=== PATIENT | female | born 1965 | race Caucasian/White ===

== ENCOUNTER 2022-03-18 09:10 | Outpatient (CLI) | payer MEDICAID, SELFPAY ==
[2022-03-18 10:08] LABS: Absolute Lymphocyte Count 1.93 X10^3/uL (0.83-4.51); Basophil# 0.05 X10^3/uL; Basophil% 0.7 % (0-1); Eosinophil# 0.18 X10^3/uL; Eosinophils% 2.6 % (0-5); Hematocrit 44.2 % (37-47); Hemoglobin 14.3 g/dL (12.0-15.0); Lymphocyte # 1.93 X10^3/ul (0.83-4.51); Lymphocyte % 28.1 % (19-41); Mean Corp Hgb Conc 32.4 g/dL (32-36); Mean Corpuscular Hgb 31.5 pg (27.0-32.0); Mean Corpuscular Volume 97.4 fL (81-99); Mean Platelet Vol. 11.8 fl (6.2-12.0); Monocyte# 0.65 X10^3/uL; Monocyte% 9.5 % (0-10); NRBC Flagged by Analyzer 0 % (0-5); Neutrophil # 4.02 X10^3/uL (2.7-7.7); Neutrophil % 58.7 % (47-70); Platelet Count 217 K/mm3 (150-450); RBC Distribution Width CV 12.7 % (11.6-14.6); RBC Distribution Width SD 45.7 fl (35.1-43.9); Red Blood Count 4.54 M/mm3 (4.2-5.4); White Blood Count 6.9 K/mm3 (4.4-11.0)
[2022-03-18 10:10] LABS: Erythrocyte Sedimentation Rate 7 mm/hr (0-30)
[2022-03-18 10:24] LABS: ALB/GLOB Ratio 1.3 RATIO (0.9-2.4); AST(SGOT) 11 U/L (15-37); Alanine Aminotransfer ALT/SGPT 13 U/L (13-56); Albumin, Serum 3.9 g/dL (3.2-5.0); Alkaline Phosphatase 83 U/L (45-117); Amylase 62 U/L (25-115); Anion Gap 6 (5-15); BUN 19 mg/dL (7-18); BUN/Creat Ratio 25.4 RATIO (10-20); CRP < 2.90 mg/L (0.0-3.0); Calcium,Total 9.4 mg/dL (8.5-10.1); Chloride 109 mmol/L (98-107); Creatinine, Serum 0.75 mg/dL (0.55-1.02); EST Glomerular Filtration Rate 84 mL/min (>60); Est Glom Filt Rate - Afr Amer 102 mL/min (>60); Glucose 96 mg/dL (74-106); LDH 183 U/L (84-246); Lipase 131 U/L (73-393); Potassium 3.8 mmol/L (3.5-5.1); Protein, Total 6.9 g/dL (6.4-8.2); Sodium Level 142 mmol/L (136-145)
[2022-03-19 17:07] LABS: Endomysial Antibody IgA Negative (Negative); Immunoglobulin A 73 mg/dL (87-352)
[2022-03-20 12:04] LABS: t-Transglutaminase IgA <2 U/mL (0-3)
[2022-03-22 14:09] LABS: Immunoglobulin A 68 mg/dL (87-352); Immunoglobulin G 622 mg/dL (586-1602); Immunoglobulin M 182 mg/dL (26-217)
[2022-03-22 14:22] LABS: Immunoglobulin E 13 IU/mL (6-495)
== END 2022-03-18 23:59 | disposition home or self-care (01) ==
LOC: LAB 09:12
PROVIDERS: PCP Family Medicine; Referring Provider Nurse Practitioner Adult Health; Visit Provider Nurse Practitioner Adult Health
DX: R10.13 Epigastric pain (principal)
CPT/HCPCS: 36415; 80053; 82150; 82784; 82785; 83516; 83615; 83690; 85025; 85652; 86140; 86255

== ENCOUNTER 2022-03-28 07:39 | Day surgery (SDC) | payer MEDICAID, SELFPAY ==
--- NOTE | 2022-03-28 07:43 | HP.PCM_ITS ---
History and Physical Date of Admission: 03/28/22 Intake Visit Reasons:?ABD PAIN GATRITIS Chief Complaint: Abdominal pain Allergies No Known Allergies Allergy (Verified 03/18/22 08:19) Medications cholecalciferol (vitamin D3) 50 mcg (2,000 unit) capsule 50 mcg PO DAILY 03/18/22 [History Confirmed 03/18/22] PFSH Medical History?(Updated 03/18/22 @ 09:50 by Cadence Bowen NP, SENIOR ANALYST-C) Anxiety Chronic superficial gastritis without bleeding Diaphragmatic hernia without obstruction or gangrene Epigastric pain Ganglion cyst Gastritis Leg cramps Nausea and vomiting Pain in thoracic spine Pruritus, unspecified Rib pain Right foot pain Syncope and collapse Surgical History? H/O umbilical hernia repair History of tonsillectomy Hx of cholecystectomy Status post right breast lumpectomy Tubal ligation status Family History? Mother Breast cancer Colon cancer HypertensionSister DiabetesBrother Diabetes Social History? Smoking Status:? Current every day smoker tobacco type: cigarettes alcohol intake:? current alcohol intake frequency: holidays/special occasions only HPI HPI Chief Complaint: Abdominal pain Details: SAFIA LEMUS, is a 57 F who presents to the office today to establish with GI for epigastric pain that began in November 2021.? She had 2 emergency room visits around that time at [facility].? Apparently the first 1 was for shakes tremors and insomnia.? The second visit was on 11/09/2021 for abdominal pain and nausea.? She was treated with IV fluids because she had elevated hemoglobin and hematocrit.? Remainder of CBC with differential was normal.? CMP was normal.? Sed rate was negative.? CT abdomen and pelvis with IV contrast was negative.? She was discharged with Protonix ketorolac and Percocet.? No relief of pain with PPI therapy or with [id number] antiacids.? Some improvement in her nausea with sucralfate from her primary care provider. Constant dull epigastric pain, the severity varies, feels like increased pressure when it flares, no pattern she can discern, doesn't wake her up, not related to eating, doesn't radiate. No relief with antacids. Sucralfate helped with nausea but not the pain. Has nausea every day, random bouts of nausea, no vomiting. No heartburn or acid relux. No difficulty swallowing, but it can feel like everything is backing up. No change in appetite. No early satiety. Has a BM every morning after coffee. No diarrhea or constipation, no melena or hematochezia. She had COVID twice, about a year ago and shortly before these symptoms began She had EGD and colonoscopy about 9 yrs ago by general surgeon Dr Huang in [place] Mother colon cancer in her 60s Her only medication is vitamin D supplement.? Past surgical history includes umbilical hernia repair, cholecystectomy, tubal ligation. ROS Const Constitutional: Positive for fatigue ENT ENT: No difficulty swallowing Gastro GI: Positive for abdominal pain, bloating, excessive flatus and nausea/dyspepsia; No belching, change in bowel habits, change in stool character, coffee ground emesis, constipation, cramping, diarrhea, heartburn, difficulty swallowing, feeling full early, incontinent of stools, Vomiting blood/hematemesis, Blood in stool, loose stools, Black,tarry stools, pain with swallowing, vomiting or other Musc Musculoskeletal: Positive for joint pain, back pain and sciatica Skin Skin: No yellowing of the eye or itchy eyes Psych Psychiatric: No anxiety and No depression Endo Endocrine: Positive for fatigue Aller/Imm Allergy/Immunologic: No itchy eyes James/Lymp Hematologic/Lymphatic: Positive for easy bruising; No easy bleeding Exam Const General: cooperative, healthy appearing and comfortable Nutritional Appearance: thin Orientation: alert, awake and oriented x3 HENMT Head: normal to inspection Eyes Sclera: sclerae normal Chest Chest palpation & inspection: normal inspection of the chest Resp Effort & Inspection: normal respiratory effort GI Inspection: normal to inspection Palpation: soft, no hepatosplenomegaly, no masses and tender in the epigastrum and in the RUQ General: bladder normal to palpation Bimanual Exam- Vagina & Uterus: bladder normal to palpation Skin General: no rashes or lesions noted Neuro Gait: normal gait Psych Mood: euthymic mood Quality Reporting Tobacco Screening ([facility]) Smoking Status: Current every day smoker Assessment and Plan Assessment and Plan (1) Epigastric pain: ?Status:?Acute ?Plan: 57 yr old female with chronic epigastric pain and nausea. DDx includes PUD, gastroparesis, pancreatitis. Will get biochemical w/u. Will get gastric emptying study and RUQ US. We will call her w/ lab and imaging results, and any further eval or treatment based on those results. She will be scheduled for EGD to eval for gastritis, PUD, h pylori; f/u in office 2 wks later. (2) Nausea: ?Status:?Acute ?Plan: see above ? ? ? Orders: Orders Gastric Emptying Study Today R10.13 - Epigastric pain ? Amylase Today R10.13 - Epigastric pain ? Comprehensive Metabolic Profil Today R10.13 - Epigastric pain ? CRP Today R10.13 - Epigastric pain ? LDH Today R10.13 - Epigastric pain ? Lipase Today R10.13 - Epigastric pain ? CBC W/Diff, Automated Today R10.13 - Epigastric pain ? Erythrocyte Sed Rate Today R10.13 - Epigastric pain ? Celiac Disease Profile Today R10.13 - Epigastric pain ? Immunoglobulins G/A/M/E Today R10.13 - Epigastric pain ? Abdomen Complete Today R10.13 - Epigastric pain ? EGD 03/28/22 R10.13 - Epigastric pain ? Medications: Discontinued oxycodone-acetaminophen 5-325 mg ?? Discontinued Reason:? Pt no longer taking 1 TAB? PO Q6H PRN PRN 15 TABLETS 0RF Mod-Severe (Pain Scale 6-10) ? ? I have examined the patient and the H&P has been reviewed. There are no clinical changes since date of exam.
[2022-03-28] MEDS: Lactated Ringers 1,000 ML 15 ML IV (07:50)
[2022-03-28 07:57] VITALS: BP 121/79; PULSE 82; RESP 18; TEMP 36.9; O2SAT 97; BMI 22.7
[2022-03-28 08:30] VITALS: BP 121/79; BP 85/55; PULSE 80; RESP 17; TEMP 36.7; O2SAT 94
[2022-03-28 08:35] VITALS: BP 120/90; BP 121/79; PULSE 90; RESP 17; O2SAT 99
--- NOTE | 2022-03-28 08:35 | OP.CCLET_ITS ---
03/28/2022 [facility] Re : Upper GI endoscopy procedure for Trish Davis This procedure was performed on Monday, March 28, 2022. My impressions and recommendations are as follows: Impressions : - LA Grade A reflux esophagitis. Biopsied. - Medium-sized hiatal hernia. - Erythematous mucosa in the antrum. Biopsied. - A single lesion diagnostic of aberrant pancreas was found in the duodenum. Biopsied. Recommendations : - Discharge patient to home. - Resume previous diet. - Continue present medications. - Await pathology results. My findings are described in the full procedure note, which is enclosed. If I can be of further assistance, please feel free to contact me at . Sincerely, Ronny Mann, 03/28/2022 8:35:06 AM This report has been signed electronically.
--- NOTE | 2022-03-28 08:35 | OP.EGD_ITS ---
Patient Name: Trish Cifuentes Procedure Date: 03/28/2022 8:13 AM Date of : 1965 Age: 57 Procedure: Upper GI endoscopy Indications: Epigastric abdominal pain, Failure to respond to medical treatment Providers: Ronny Mann DO Medicines: Monitored Anesthesia Care Patient Profile: This is a 57 year old female. Refer to note in patient chart for documentation of history and physical. Patient has symptoms of chronic abdominal cramping and acute epigastric abdominal pain. Complications: No immediate complications. Procedure: Pre-Anesthesia Assessment: - Prior to the procedure, a History and Physical was performed, and patient medications and allergies were reviewed. The risks and benefits of the procedure and the sedation options and risks were discussed with the patient. All questions were answered and informed consent was obtained. Patient identification and proposed procedure were verified in the pre-procedure area. Mental Status Examination: alert and oriented. Airway Examination: normal oropharyngeal airway and neck mobility. Respiratory Examination: clear to auscultation. CV Examination: normal. Prophylactic Antibiotics: The patient does not require prophylactic antibiotics. Prior Anticoagulants: The patient has taken no previous anticoagulant or antiplatelet agents. ASA Grade Assessment: II - A patient with mild systemic disease. After reviewing the risks and benefits, the patient was deemed in satisfactory condition to undergo the procedure. The anesthesia plan was to use monitored anesthesia care (MAC). Immediately prior to administration of medications, the patient was re-assessed for adequacy to receive sedatives. The heart rate, respiratory rate, oxygen saturations, blood pressure, adequacy of pulmonary ventilation, and response to care were monitored throughout the procedure. The physical status of the patient was re-assessed after the procedure. After obtaining informed consent, the endoscope was passed under direct vision. Throughout the procedure, the patient's blood pressure, pulse, and oxygen saturations were monitored continuously. The gastroscope was introduced through the mouth, and advanced to the second part of duodenum. The upper GI endoscopy was accomplished without difficulty. The patient tolerated the procedure well. Scope In: 8:20:17 AM Scope Out: 8:26:08 AM Total Procedure Duration Time 0 hours 5 minutes 51 seconds Findings: LA Grade A (one or more mucosal breaks less than 5 mm, not extending between tops of 2 mucosal folds) esophagitis with no bleeding was found 35 to 37 cm from the incisors. Biopsies were taken with a cold forceps for histology. Verification of patient identification for the specimen was done. Estimated blood loss was minimal. A medium-sized hiatal hernia was present. Patchy mildly erythematous mucosa without bleeding was found in the gastric antrum. Biopsies were taken with a cold forceps for histology. Verification of patient identification for the specimen was done. Estimated blood loss was minimal. A single smooth lesion measuring 5 mm in diameter was found in the duodenal bulb. Biopsies were taken with a cold forceps for histology. Verification of patient identification for the specimen was done. Estimated blood loss was minimal. Impression: - LA Grade A reflux esophagitis. Biopsied. - Medium-sized hiatal hernia. - Erythematous mucosa in the antrum. Biopsied. - A single lesion diagnostic of aberrant pancreas was found in the duodenum. Biopsied. Recommendation: - Discharge patient to home. - Resume previous diet. - Continue present medications. - Await pathology results. Procedure Code(s): --- Professional --- 40106, Esophagogastroduodenoscopy, flexible, transoral; with biopsy, single or multiple CPT copyright 2017 [employer]. All rights reserved. The codes documented in this report are preliminary and upon appraisal technician review may be revised to meet current compliance requirements. Ronny Mann DO 03/28/2022 8:35:06 AM This report has been signed electronically. Number of Addenda: 0 Note Initiated On: 03/28/2022 8:13 AM
[2022-03-28 08:40] VITALS: BP 121/73; BP 121/79; PULSE 87; RESP 17; O2SAT 99
[2022-03-28 08:45] VITALS: BP 121/79; BP 124/82; PULSE 79; RESP 18; TEMP 36.7; O2SAT 98
--- NOTE | 2022-03-28 08:45 | EGD_PTH ---
PATIENT: SAFIA LEMUS LOC: EN U#:[id number] AGE/SX: 57/F ROOM: RE03/28/[address]: Dr. Ronny Mann DO : 1965 BED: DIS: 03/28/2022 SPEC #: [id number] RECD: 03/28/22 09:57 STATUS: DIONE DAVIDA #: [id number] YONI: 03/28/22 08:[address]: Ronny Mann DEPT: SURGICAL PATHOLOGY RECD BY: Nika Mike ENTERED: 03/28/22 11:27 SP TYPE: EGD BIOPSY OT DR: Beatriz Davis PA-C Tissues: A - Duodenum, NOS B - Gastric mucous membrane C - Esophagus, NOS Procedures: Special Stain Group II Surgery Specimen Level IV Alcian Blue/PAS (control) HEADER OPERATION: EGD ([facility]) with biopsies PRE-OP DIAGNOSIS: Epigastric pain, nausea TISSUE SUBMITTED: A ? Duodenal ulcer biopsy, B ? Gastric antrum biopsy, C ? Distal esophagus biopsy MICROSCOPIC DIAGNOSIS A. Duodenal ulcer, biopsy: Gastric metaplasia and mild chronic inflammation. B. Gastric antrum, biopsy: Minimal chronic inflammation. See comment. C. Distal esophagus, biopsy: Gastroesophageal junctional mucosa with chronic inflammation. Changes of reflux. No evidence of goblet cell metaplasia. See comment. AM:scooter 03/29/2022 COMMENT B. The results of immunohistochemistry for Helicobacter pylori will be reported separately ([id number]). C. Alcian blue/PAS stain with matched control supports the above diagnosis. MICROSCOPIC DESCRIPTION Slides are reviewed. GROSS DESCRIPTION A - Received in fixative is one container labeled with the patient's name and designated duodenal ulcer biopsy. The specimen consists of multiple irregular fragments of light garzon soft tissue that in aggregate measure 1 x 0.3 x 0.1 cm. The specimen is totally submitted in one cassette. B - Received in fixative is one container labeled with the patient's name and designated gastric antrum biopsy. The specimen consists of two irregular fragments of light garzon soft tissue that in aggregate measure 0.6 x 0.3 x 0.1 cm. The specimen is totally submitted in one cassette. C - Received in fixative is one container labeled with the patient's name and designated distal esophagus biopsy. The specimen consists of multiple irregular fragments of light garzon soft tissue that in aggregate measure 0.8 x 0.3 x 0.1 cm. The specimen is totally submitted in one cassette. / SJ:rg 03/28/2022 TC:3 CPT: 71262 x3, 62127
--- NOTE | 2022-03-28 08:45 | IMM_PTH ---
PATIENT: SAFIA LEMUS LOC: EN U#:[id number] AGE/SX: 57/F ROOM: RE03/28/[address]: Dr. Ronny Mann DO : 1965 BED: DIS: 03/28/2022 SPEC #: [id number] RECD: 03/28/22 14:23 STATUS: DIONE REIsaac #: [id number] YONI: 03/28/22 08:[address]: Ronny Mann DEPT: IMMUNOHISTOCHEMISTRY RECD BY: Jennifer Yancey ENTERED: 03/28/22 14:24 SP TYPE: IMMUNO OTHR DR: Beatriz Davis PA-C Tissues: B - Stomach, NOS Procedures: H Pylori (initial) PHYSICIAN & INSTITUTION [place] [id number] SPECIMEN INFORMATION: Tissue Source: B ? Gastric antrum Clinical Info: Epigastric pain, nausea Specimen Number: [id number] CPT code: 16167 METHODOLOGY: Deparaffinized sections of prefer/formalin-fixed tissue or PAP/DQ stained slides are incubated with monoclonal/polyclonal antibodies/oligonucleotide probes. Localization is made via biotin free immunoperoxidase method. Appropriate controls are performed and reacted as expected. Results on target cell population are indicated in the following table: RESULTS: ANTIBODY / CLONE RESULT Block B H Pylori (polyclonal) negative These tests were developed and their performance characteristics determined by [facility]. They may not have been cleared or approved by the U.S. Food and Drug Administration. The FDA has determined that such clearance or approval is not necessary. The above immunohistochemical/dualISH markers are ordered and reviewed by the Pathologist. INTERPRETATION: B. Gastric antrum, biopsy: Negative for Helicobacter pylori organisms. AM:scooter 03/29/2022
[2022-03-28 09:05] VITALS: BP 121/79
== END 2022-03-28 09:32 | disposition home or self-care (01) ==
LOC: EN 07:39 → AC 07:40
PROVIDERS: PCP Family Medicine; Referring Provider Family Medicine; Visit Provider Internal Medicine Gastroenterology
PROC: 0DJ08ZZ Inspection of Upper Intestinal Tract, Via Natural or Artificial Opening Endoscopic (ICD-10-PCS; CPT 43235; principal; 2022-03-28 08:40)
DX: K44.9 Diaphragmatic hernia without obstruction or gangrene (principal); K21.00 Gastro-esophageal reflux disease with esophagitis, without bleeding; G47.00 Insomnia, unspecified; R11.0 Nausea; Z80.0 Family history of malignant neoplasm of digestive organs; F17.200 Nicotine dependence, unspecified, uncomplicated; R10.13 Epigastric pain
CPT/HCPCS: 43239; 88305; 88313; 88342; J7120; J2405

== ENCOUNTER 2022-08-05 11:50 | Day surgery (SDC) | payer OTHER, MEDICAID, SELFPAY ==
[2022-08-05] VITALS (7 sets, daily range): BP systolic 127–150; BP diastolic 77–92; PULSE 82–88; RESP 16; TEMP 36.2–36.8; O2SAT 97–100; BMI 21.7
[2022-08-05] MEDS: Lactated Ringers 1,000 ML 15 ML IV (12:47)
--- NOTE | 2022-08-05 12:50 | HP.PCM_ITS ---
History and Physical Date of Admission: 08/05/22 57 F who presents to the office today for f/u epigastric pain. EGD found pancreatic rest in the duodenum. Plan at last visit was to hold on further testing for now per pt preference (we had discussed abd US), and to have her take metoclopramide 5 mg at HS and pancreatic enzymes, Creon 1 cap with snack, 2 caps with meals. Metoclopramide didn't help, but she does find Creon helpful; says I now have more good days than bad days. She now says her epigastric pain began 9 yrs ago. Became more problematic 11/2021. 03/2022 EGD findings--hiatal hernia, pancreatic rest in duodenum (bx is gastric metaplasia which is consistent with pancreatic rest), gastritis At her last appt on 04/05/22 the pain had flared since the EGD. Pain was almost constant, dull pressure type of pain, and tender to palpation. The severity varies, no pattern she can discern, doesn't wake her up, not related to eating, doesn't radiate. Pain is more bothersome than the nausea. No vomiting. No heartburn or acid reflux. No bowel complaints. No change in appetite. No early satiety. Has a BM every morning after coffee. No diarrhea or constipation, no melena or hematochezia. 03/2022 labs: cbc unremarkable, cmp unremarkable, normal esr, normal crp, normal amylase, normal lipase, low IgA so tissue transglutaminase IgG needs to be done CT abdomen and pelvis with IV contrast was negative at [facility] during ED visit in 11/2021.? She had COVID twice, about a year ago and shortly before these symptoms began Mother colon cancer in her 60s ROS Const Constitutional: No fatigue ENT ENT: No difficulty swallowing Gastro GI: Positive for abdominal pain; No belching, bloating, change in bowel habits, change in stool character, coffee ground emesis, constipation, cramping, diarrhea, heartburn, difficulty swallowing, feeling full early, excessive flatus, incontinent of stools, Vomiting blood/hematemesis, Blood in stool, loose stools, Black,tarry stools, nausea/dyspepsia, pain with swallowing, vomiting or other Musc Musculoskeletal: Positive for back pain, muscle cramps and sciatica; No joint pain Skin Skin: No yellowing of the eye or itchy eyes Psych Psychiatric: No anxiety and No depression Endo Endocrine: No fatigue Aller/Imm Allergy/Immunologic: No itchy eyes James/Lymp Hematologic/Lymphatic: Positive for easy bruising; No easy bleeding Exam Const General: cooperative and comfortable Nutritional Appearance: average body habitus Orientation: alert, awake and oriented x3 Quality Reporting Tobacco Screening ([facility] 138) Smoking Status: Current every day smoker Assessment and Plan Assessment and Plan (1) Epigastric pain: ?Status:?Chronic ?Plan: 57 yr old female with chronic epigastric pain, may be due to pancreatic rest in duodenum, pain is significantly improved since starting Creon pancreatic enzymes. She recalls Dr Mann telling her after EGD that he could ablate the pancreatic rest if it was biopsy-confirmed which it was. I discussed with Dr Mann. We will proceed w/ EGD with RFA of pancreatic rest in duodenum. (2) Pancreas, aberrant: ?Status:?Acute ?Plan: see above ? ? ? Medications: Discontinued metoclopramide HCl ?? Discontinued Reason:? Order Completed 5 mg? PO QHS 30 tabs 0RF ? ? I have examined the patient and the H&P has been reviewed. There are no clinical changes since date of exam.
--- NOTE | 2022-08-05 13:00 | EGD_PTH ---
PATIENT: SAFIA LEMUS LOC: EN U#:[id number] AGE/SX: 57/F ROOM: RE08/05/[address]: Dr. Ronny Mann DO : 1965 BED: DIS: 08/05/2022 SPEC #: [id number] RECD: 08/05/22 15:20 STATUS: DIONE DAVIDA #: [id number] YONI: 08/05/22 13:[address]: Ronny Mann DEPT: SURGICAL PATHOLOGY RECD BY: Nika Mike ENTERED: 08/08/22 08:53 SP TYPE: EGD BIOPSY OT DR: Beatriz Davis PA-C Tissues: Gastric mucous membrane Procedures: Surgery Specimen Level IV HEADER OPERATION: EGD ([facility]) with biopsies PRE-OP DIAGNOSIS: Pancreatic rest TISSUE SUBMITTED: Submucosal lesion MICROSCOPIC DIAGNOSIS Submucosal lesion, biopsy: Submucosal benign glandular hyperplasia. Mild chronic inflammation. See comment. AM:scooter 08/09/2022 COMMENT The biopsy contains thermal artifact. Clinical correlation is suggested. MICROSCOPIC DESCRIPTION Slides are reviewed. GROSS DESCRIPTION Received in fixative is one container labeled with the patient's name and designated submucosal lesion. The specimen consists of multiple irregular fragments of light garzon soft tissue that in aggregate measure 0.8 x 0.2 x 0.1 cm. The specimen is totally submitted in one cassette. / SJ:scooter 08/08/2022 TC:3 CPT: 85717
[2022-08-05] MEDS: Epinephrine (1 mg/ml) 1 MG/ML VIAL (14:20)
[2022-08-05] MEDS: 0.9% Normal Saline (Pres. free 10 ML Vial (14:20)
--- NOTE | 2022-08-05 14:43 | OP.EGD_ITS ---
Patient Name: Trish Cifuentes Procedure Date: 08/05/2022 2:06 PM Date of : 1965 Age: 57 Procedure: Upper GI endoscopy Indications: Epigastric abdominal pain Providers: Ronny Mann DO Referring MD: Ronny Mann DO Medicines: Monitored Anesthesia Care Patient Profile: This is a 57 year old female. Refer to note in patient chart for documentation of history and physical. Patient has symptoms of chronic epigastric abdominal pain. Complications: No immediate complications. Procedure: Pre-Anesthesia Assessment: - Prior to the procedure, a History and Physical was performed, and patient medications and allergies were reviewed. The risks and benefits of the procedure and the sedation options and risks were discussed with the patient. All questions were answered and informed consent was obtained. Patient identification and proposed procedure were verified by the physician in the pre-procedure area. Mental Status Examination: alert and oriented. Prophylactic Antibiotics: The patient does not require prophylactic antibiotics. Prior Anticoagulants: The patient has taken no previous anticoagulant or antiplatelet agents. After reviewing the risks and benefits, the patient was deemed in satisfactory condition to undergo the procedure. The anesthesia plan was to use monitored anesthesia care (MAC). Immediately prior to administration of medications, the patient was re-assessed for adequacy to receive sedatives. The heart rate, respiratory rate, oxygen saturations, blood pressure, adequacy of pulmonary ventilation, and response to care were monitored throughout the procedure. The physical status of the patient was re-assessed after the procedure. After obtaining informed consent, the endoscope was passed under direct vision. Throughout the procedure, the patient's blood pressure, pulse, and oxygen saturations were monitored continuously. The gastroscope was introduced through the mouth, and advanced to the second part of duodenum. The upper GI endoscopy was accomplished without difficulty. The patient tolerated the procedure well. Scope In: 2:17:51 PM Scope Out: 2:28:32 PM Total Procedure Duration Time 0 hours 10 minutes 41 seconds Findings: The examined esophagus was normal. A small hiatal hernia was present. No other significant abnormalities were identified in a careful examination of the stomach. A medium-sized mass with no bleeding was found in the duodenal bulb. Area was successfully injected with 9 mL of a 1:10,000 solution of epinephrine for a lift polypectomy. Coagulation for destruction of remaining portion of lesion using snare was successful. Estimated blood loss was minimal. Impression: - Normal esophagus. - Small hiatal hernia. - Benign duodenal mass. Injected. Treated with a hot snare. - No specimens collected. Recommendation: - Discharge patient to home. - Resume previous diet. - Continue present medications. - Await pathology results. Procedure Code(s): --- Professional --- 19595, Esophagogastroduodenoscopy, flexible, transoral; with ablation of tumor(s), polyp(s), or other lesion(s) (includes pre- and post-dilation and guide wire passage, when performed) 38423, 57, Esophagogastroduodenoscopy, flexible, transoral; with directed submucosal injection(s), any substance CPT copyright 2017 [employer]. All rights reserved. The codes documented in this report are preliminary and upon surgical aide review may be revised to meet current compliance requirements. Ronny Mann DO 08/05/2022 2:43:33 PM This report has been signed electronically. Number of Addenda: 0 Note Initiated On: 08/05/2022 2:06 PM
--- NOTE | 2022-08-05 14:44 | OP.CCLET_ITS ---
08/05/2022 Beatriz Davis Re : Upper GI endoscopy procedure for Trish Davis This procedure was performed on Friday, August 05, 2022. My impressions and recommendations are as follows: Impressions : - Normal esophagus. - Small hiatal hernia. - Benign duodenal mass. Injected. Treated with a hot snare. - No specimens collected. Recommendations : - Discharge patient to home. - Resume previous diet. - Continue present medications. - Await pathology results. My findings are described in the full procedure note, which is enclosed. If I can be of further assistance, please feel free to contact me at . Sincerely, Ronny Mann, 08/05/2022 2:43:33 PM This report has been signed electronically.
== END 2022-08-05 16:20 | disposition home or self-care (01) ==
LOC: EN 11:51 → AC 11:53
PROVIDERS: PCP Family Medicine; Referring Provider Family Medicine; Visit Provider Internal Medicine Gastroenterology
PROC: 0DJ08ZZ Inspection of Upper Intestinal Tract, Via Natural or Artificial Opening Endoscopic (ICD-10-PCS; CPT 43235; principal; 2022-08-05 12:55)
DX: K44.9 Diaphragmatic hernia without obstruction or gangrene (principal); R10.13 Epigastric pain; F17.200 Nicotine dependence, unspecified, uncomplicated; K31.9 Disease of stomach and duodenum, unspecified; Z86.16 Personal history of COVID-19; Q45.3 Other congenital malformations of pancreas and pancreatic duct
CPT/HCPCS: 43270; 43236; 88305; J7120; J2405; J3490